=== PATIENT | female | born 1985 | race Caucasian/White ===

== ENCOUNTER 2021-03-25 10:56 | Outpatient (CLI) | payer MEDICAID, SELFPAY ==
--- NOTE | 2021-03-25 11:15 | XR_ITS ---
WS: [id number] Left foot, 3 views, 03/25/2021 Clinical Data: PAIN IN LEFT FOOT Comparison: None. Findings: There may be a fracture of the medial distal aspect of the tarsal navicular. No other possible fractures are seen. The phalanges and metatarsals are intact. The soft tissues are normal. XR/XR foot LT min 3V* [id number] Impression: Irregularity of the medial distal left tarsal navicular which could represent a fracture.
== END 2021-03-25 10:57 | disposition home or self-care (01) ==
PROVIDERS: PCP Family Medicine; Visit Provider Nurse Practitioner Family
DX: M79.672 Pain in left foot (principal)
CPT/HCPCS: 73630

== ENCOUNTER → 2021-05-05 15:43 | Outpatient (BNVA) | payer MEDICAID, SELFPAY | PROVIDERS: PCP Family Medicine; Visit Provider Podiatrist Foot & Ankle Surgery | DX: S92.255D Nondisplaced fracture of navicular [scaphoid] of left foot, subsequent encounter for fracture with routine healing (principal); W20.8XXD Other cause of strike by thrown, projected or falling object, subsequent encounter | CPT/HCPCS: 73630 ==

== ENCOUNTER → 2021-05-27 15:14 | Outpatient (BNVA) | payer MEDICAID, SELFPAY | PROVIDERS: PCP Family Medicine; Visit Provider Podiatrist Foot & Ankle Surgery | DX: M79.672 Pain in left foot (principal) | CPT/HCPCS: 73630 ==